=== PATIENT | female | born 1990 | race Caucasian/White ===

== ENCOUNTER 2019-11-20 11:30 | Inpatient (IN) ==
[2019-11-20] MEDS ORDERED: 0.9 % Sodium Chloride 1,000 ML IVC ONE ×2 (12:20→15:09)
[2019-11-20] MEDS ORDERED: Isovue-370 500 ML BOTTLE IVP ONE (12:33)
[2019-11-20 13:02] LABS: Alanine Aminotransferase 139 Units/L (7-52); Albumin 4.5 g/dL (3.5-5.7); Albumin/Globulin Ratio 1.7 (1.1-2.2); Alkaline Phosphatase 79 Units/L (34-104); Amylase 74 Units/L (29-103); Aspartate Amino Transferase 237 Units/L (13-39); BUN/Creatinine Ratio 26 (6-26); Bilirubin,Direct 0.5 mg/dL (0.0-0.2); Bilirubin,Indirect 0.8 mg/dL (0.0-1.0); Bilirubin,Total 1.3 mg/dL (0.3-1.0); Blood Urea Nitrogen 10 mg/dL (6-20); Calcium 9.1 mg/dL (8.6-10.3); Carbon Dioxide 22 mEq/L (23-29); Chloride 99 mEq/L (98-107); Globulin 2.6 g/dL (2.4-3.5); Glucose 96 mg/dL (70-105); Lipase 195 Units/L (11-82); Osmolality,Calculated 287 (280-300); Potassium 3.4 mEq/L (3.5-5.1); Sodium 139 mEq/L (136-145); Total Protein 7.1 g/dL (6.4-8.9); eGFR For African Americans > 60 (> 60); eGFR For Non-African Americans > 60 (> 60)
[2019-11-20 13:24] LABS: Bilirubin,Urine Moderate (Negative); Blood,Urine Negative (Negative); Clarity,Urine Cloudy (Clear); Color,Urine Orange (Yellow); Glucose,Urine (UA) Normal (Normal); Ketones,Urine 80 mg/dL (Negative); Leukocyte Esterase,Urine Small (Negative); Nitrite,Urine Negative (Negative); Protein,Urine 100 mg/dL (Neg-Trace); Specific Gravity,Urine 1.027 (1.010-1.025)
[2019-11-20 13:26] LABS: Bacteria,Urine Moderate per hpf (None-Few); Squamous Epithelial Cell,Urine Many per lpf (None-Few)
[2019-11-20 13:30] LABS: Hyaline Casts,Urine None Seen per lpf (None-Few); RBC,Urine 0-3 per hpf (0-3)
[2019-11-20 14:13] LABS: Basophils # 0.1 K/mcL (0.0-0.2); Basophils % 1.6 %; Eosinophils % 0.6 %; Hematocrit 42.3 % (35.3-44.9); Hemoglobin 14.7 g/dL (11.5-15.4); Immature Granulocytes % 0.3 % (0-4); Lymphocytes % 31.2 %; Mean Corpuscular HGB Conc 34.8 g/dL (31.6-35.5); Mean Corpuscular Hemoglobin 34.4 pg (28.0-33.3); Mean Corpuscular Volume 99.1 fL (83.0-100.0); Mean Platelet Volume 9.6 fL (9.4-12.4); Monocytes # 0.5 K/mcL (0.0-1.3); Monocytes % 14.6 %; Neutrophils # 1.7 K/mcL (1.6-8.9); Platelet Count 134 K/mcL (140-400); Red Blood Count 4.27 M/mcL (3.82-4.97); Red Cell Distribution Width 15.1 % (11.5-14.5); Segmented Neutrophils % 51.7 %; White Blood Count 3.2 K/mcL (4.3-11.1)
[2019-11-20] MEDS ORDERED: Ketorolac 15 MG/ML VIAL IVP ONE (15:09)
[2019-11-20] MEDS ORDERED: Ondansetron 4 MG/2 ML VIAL IVP ONE (15:09)
[2019-11-20] MEDS ORDERED: *HR* Promethazine 25 MG/ML VIAL IVP PRN (16:47)
[2019-11-20] MEDS ORDERED: Ondansetron 4 MG/2 ML VIAL IVP PRN (16:47)
[2019-11-20] MEDS ORDERED: Ibuprofen 400 MG TABLET PO PRN (16:47)
[2019-11-20 17:28] LABS: VBG HCO3 23 mEq/L (21-27); VBG PCO2 34 mmHg (41-51); VBG PH 7.44 pH Units (7.32-7.42); VBG PO2 159 mmHg (25-50)
[2019-11-20 17:54] LABS: Prothrombin Time 11.9 Seconds (9.4-12.1)
[2019-11-20 17:55] LABS: Acetaminophen < 10 mcg/mL (10-20); Ethanol 162 mg/dL (Less than 10); Salicylate < 2.5 mg/dL (15.0-30.0)
[2019-11-20 18:01] LABS: Hepatitis B Surface Antigen Nonreactive (Nonreactive)
[2019-11-20] MEDS: Ringers Solution, Lactated 1,000 ML IVC SCH (18:15)
[2019-11-20] MEDS: Pantoprazole 40 MG VIAL IVP SCH (18:18)
[2019-11-20 18:29] LABS: Hepatitis B Core IgM Nonreactive (Nonreactive)
[2019-11-20 18:30] LABS: Hepatitis C Virus Antibody Nonreactive (Nonreactive)
[2019-11-20 18:31] LABS: Hepatitis A Antibody IgM Nonreactive (Nonreactive)
[2019-11-20 19:29] LABS: Amphetamine Screen,Urine Negative ng/mL (Cutoff=1000); Barbiturate Screen,Urine Negative ng/mL (Cutoff=200); Benzodiazepines Screen,Urine Negative ng/mL (Cutoff=200); Cannabinoid Screen,Urine Negative ng/mL (Cutoff = 50); Cocaine Screen,Urine Negative ng/mL (Cutoff= 300); Opiate Screen,Urine Negative ng/mL (Cutoff=300); Phencyclidine Screen,Urine Negative ng/mL (Cutoff=25)
[2019-11-20] MEDS ORDERED: Ketorolac 15 MG/ML VIAL IVP PRN (19:41)
[2019-11-21] MEDS: Ringers Solution, Lactated 1,000 ML IVC SCH (03:27)
[2019-11-21 05:44] LABS: Immature Granulocytes % 0.5 % (0-4); Red Cell Distribution Width 14.4 % (11.5-14.5)
[2019-11-21 05:46] LABS: Eosinophils # 0.1 K/mcL (0.0-0.6); Eosinophils % 1.5 %; Hematocrit 36.2 % (35.3-44.9); Hemoglobin 12.5 g/dL (11.5-15.4); Immature Platelets 3.7 % (1.1-6.1); Lymphocytes # 1.5 K/mcL (0.6-4.6); Lymphocytes % 36.6 %; Mean Corpuscular HGB Conc 34.5 g/dL (31.6-35.5); Mean Corpuscular Hemoglobin 34.3 pg (28.0-33.3); Mean Corpuscular Volume 99.5 fL (83.0-100.0); Mean Platelet Volume 9.9 fL (9.4-12.4); Monocytes # 0.5 K/mcL (0.0-1.3); Monocytes % 12.9 %; Neutrophils # 1.9 K/mcL (1.6-8.9); Platelet Count 102 K/mcL (140-400); Red Blood Count 3.64 M/mcL (3.82-4.97); Segmented Neutrophils % 47.5 %
[2019-11-21 05:48] LABS: INR 1.1; Prothrombin Time 12.7 Seconds (9.4-12.1)
[2019-11-21 06:05] LABS: Alanine Aminotransferase 95 Units/L (7-52); Albumin/Globulin Ratio 1.8 (1.1-2.2); Alkaline Phosphatase 67 Units/L (34-104); Aspartate Amino Transferase 132 Units/L (13-39); BUN/Creatinine Ratio 18 (6-26); Bilirubin,Direct 0.5 mg/dL (0.0-0.2); Bilirubin,Total 1.5 mg/dL (0.3-1.0); Blood Urea Nitrogen 7 mg/dL (6-20); Calcium 8.6 mg/dL (8.6-10.3); Carbon Dioxide 25 mEq/L (23-29); Chloride 97 mEq/L (98-107); Chol/HDL Ratio 2.1 (0-4.9); Cholesterol 210 mg/dL (< 200); Globulin 2.2 g/dL (2.4-3.5); Glucose 78 mg/dL (70-105); HDL Cholesterol 99 mg/dL (40-59); LDL Cholesterol,Calculated 98 mg/dL (0-99); Lipase 318 Units/L (11-82); Magnesium 1.1 mg/dL (1.6-2.6); Osmolality,Calculated 279 (280-300); Potassium 3.4 mEq/L (3.5-5.1); Sodium 136 mEq/L (136-145); Total Protein 6.2 g/dL (6.4-8.9); Triglycerides 65 mg/dL (< 150); eGFR For African Americans > 60 (> 60); eGFR For Non-African Americans > 60 (> 60)
[2019-11-21] MEDS ORDERED: *HR* LORazepam 2 MG/ML VIAL IVP PRN ×3 (07:57)
[2019-11-21] MEDS ORDERED: 0.9 % Sodium Chloride 1,000 ML IVC ONE (07:59)
[2019-11-21] MEDS: Pantoprazole 40 MG VIAL IVP SCH (10:04)
[2019-11-21] MEDS: 0.9 % Sodium Chloride 1,000 ML IVC SCH ×2 (11:13→19:43)
[2019-11-22] MEDS: 0.9 % Sodium Chloride 1,000 ML IVC SCH ×4 (03:14→20:36)
[2019-11-22] MEDS ORDERED: *HR* LORazepam 2 MG/ML VIAL IVP ONE (03:18)
[2019-11-22 09:10] LABS: INR 1.1
[2019-11-22 09:26] LABS: Alanine Aminotransferase 71 Units/L (7-52); Albumin 3.9 g/dL (3.5-5.7); Albumin/Globulin Ratio 1.6 (1.1-2.2); Alkaline Phosphatase 63 Units/L (34-104); Aspartate Amino Transferase 79 Units/L (13-39); BUN/Creatinine Ratio 18 (6-26); Bilirubin,Direct 0.4 mg/dL (0.0-0.2); Bilirubin,Indirect 0.9 mg/dL (0.0-1.0); Bilirubin,Total 1.3 mg/dL (0.3-1.0); Blood Urea Nitrogen 5 mg/dL (6-20); Calcium 8.5 mg/dL (8.6-10.3); Carbon Dioxide 20 mEq/L (23-29); Chloride 98 mEq/L (98-107); Globulin 2.4 g/dL (2.4-3.5); Glucose 78 mg/dL (70-105); Lipase 291 Units/L (11-82); Magnesium 1.4 mg/dL (1.6-2.6); Osmolality,Calculated 274 (280-300); Potassium 3.7 mEq/L (3.5-5.1); Sodium 134 mEq/L (136-145); Total Protein 6.3 g/dL (6.4-8.9); eGFR For African Americans > 60 (> 60); eGFR For Non-African Americans > 60 (> 60)
[2019-11-22] MEDS: Thiamine (B-1) 100 MG, Folic Acid 1 MG, MVI, adult with vitamin K 10 ML in 0.9 % Sodi... IVPB SCH (10:31)
[2019-11-22] MEDS: Pantoprazole 40 MG VIAL IVP SCH (10:31)
[2019-11-23 01:27] LABS: INR 1.1; Prothrombin Time 12.9 Seconds (9.4-12.1)
[2019-11-23 01:51] LABS: Albumin 3.8 g/dL (3.5-5.7); Albumin/Globulin Ratio 1.6 (1.1-2.2); Bilirubin,Direct 0.4 mg/dL (0.0-0.2); Bilirubin,Indirect 0.8 mg/dL (0.0-1.0); Bilirubin,Total 1.2 mg/dL (0.3-1.0); Globulin 2.4 g/dL (2.4-3.5); Magnesium 1.6 mg/dL (1.6-2.6); Total Protein 6.2 g/dL (6.4-8.9)
[2019-11-23] MEDS: 0.9 % Sodium Chloride 1,000 ML IVC SCH ×4 (07:51→20:28)
[2019-11-23] MEDS: Thiamine (B-1) 100 MG, Folic Acid 1 MG, MVI, adult with vitamin K 10 ML in 0.9 % Sodi... IVPB SCH (07:52)
[2019-11-23] MEDS: Pantoprazole 40 MG VIAL IVP SCH (07:52)
[2019-11-23] MEDS ORDERED: *HR* LORazepam 0.5 MG TABLET PO PRN (10:23)
[2019-11-24] MEDS: 0.9 % Sodium Chloride 1,000 ML IVC SCH ×2 (02:03→08:18)
[2019-11-24 06:18] LABS: INR 1.2; Prothrombin Time 13.4 Seconds (9.4-12.1)
[2019-11-24 06:41] LABS: Albumin 3.6 g/dL (3.5-5.7); Albumin/Globulin Ratio 1.8 (1.1-2.2); Bilirubin,Direct 0.3 mg/dL (0.0-0.2); Bilirubin,Indirect 0.6 mg/dL (0.0-1.0); Bilirubin,Total 0.9 mg/dL (0.3-1.0); Magnesium 1.3 mg/dL (1.6-2.6); Total Protein 5.6 g/dL (6.4-8.9)
[2019-11-24] MEDS: Thiamine (B-1) 100 MG, Folic Acid 1 MG, MVI, adult with vitamin K 10 ML in 0.9 % Sodi... IVPB SCH (09:27)
[2019-11-24 10:33] VITALS: BP 155/117
[2019-11-25 08:32] LABS: ANA IgG by ELISA NONE DETECTED (None Detected)
[2019-11-25 08:52] LABS: Immunoglobulin G Subclass 4 77 mg/dL (1-123)
== END 2019-11-24 13:46 | disposition home or self-care (01) | DRG 438 ==
LOC: EMEROOARM 11:30 → 3ANU 11:30 → SUATTDRO 16:58 → 3ANU 17:57 → SUATTDRO 11-23 13:33
PROVIDERS: ADMIT Internal Medicine; ATTEND Family Medicine

== ENCOUNTER 2020-01-07 09:12 | Inpatient (IN) ==
[2020-01-07] MEDS ORDERED: 0.9 % Sodium Chloride 1,000 ML IVC ONE (09:19)
[2020-01-07] MEDS ORDERED: Thiamine (B-1) 100 MG in 0.9 % Sodium Chloride 50 ML IVPB ONE (09:19)
[2020-01-07] MEDS ORDERED: *HR* LORazepam 2 MG/ML VIAL IVP ONE ×3 (09:28→10:38)
[2020-01-07 09:49] LABS: Basophils # 0.1 K/mcL (0.0-0.2); Basophils % 0.9 %; Eosinophils % 0.2 %; Hemoglobin 13.9 g/dL (11.5-15.4); Immature Granulocytes % 0.4 % (0-4); Lymphocytes # 1.4 K/mcL (0.6-4.6); Lymphocytes % 24.3 %; Mean Corpuscular HGB Conc 33.9 g/dL (31.6-35.5); Mean Corpuscular Hemoglobin 34.3 pg (28.0-33.3); Mean Corpuscular Volume 101.2 fL (83.0-100.0); Mean Platelet Volume 10.1 fL (9.4-12.4); Monocytes # 0.6 K/mcL (0.0-1.3); Neutrophils # 3.7 K/mcL (1.6-8.9); Platelet Count 134 K/mcL (140-400); Red Blood Count 4.05 M/mcL (3.82-4.97); Red Cell Distribution Width 12.2 % (11.5-14.5); Segmented Neutrophils % 64.2 %; White Blood Count 5.7 K/mcL (4.3-11.1)
[2020-01-07 09:59] LABS: Alanine Aminotransferase 44 Units/L (7-52); Albumin 4.7 g/dL (3.5-5.7); Albumin/Globulin Ratio 1.8 (1.1-2.2); Alkaline Phosphatase 63 Units/L (34-104); Aspartate Amino Transferase 54 Units/L (13-39); BUN/Creatinine Ratio 22 (6-26); Bilirubin,Total 1.6 mg/dL (0.3-1.0); Blood Urea Nitrogen 10 mg/dL (6-20); Calcium 9.7 mg/dL (8.6-10.3); Carbon Dioxide 26 mEq/L (23-29); Chloride 100 mEq/L (98-107); Globulin 2.6 g/dL (2.4-3.5); Glucose 113 mg/dL (70-105); Magnesium 1.4 mg/dL (1.6-2.6); Osmolality,Calculated 282 (280-300); Potassium 3.6 mEq/L (3.5-5.1); Sodium 136 mEq/L (136-145); Total Protein 7.3 g/dL (6.4-8.9); eGFR For African Americans > 60 (> 60); eGFR For Non-African Americans > 60 (> 60)
[2020-01-07] MEDS ORDERED: Ondansetron 4 MG/2 ML VIAL IVP PRN (10:49)
[2020-01-07] MEDS ORDERED: Naloxone 0.4 MG/ML INJ IVP PRN (10:49)
[2020-01-07] MEDS ORDERED: Ibuprofen 400 MG TABLET PO PRN (10:49)
[2020-01-07] MEDS ORDERED: Potassium Phosphate 44 MEQ in 0.9 % Sodium Chloride 250 ML IVPB ONE (10:54)
[2020-01-07 11:15] LABS: Lipase 19 Units/L (11-82)
[2020-01-07] MEDS ORDERED: *HR* LORazepam 2 MG/ML VIAL IVP PRN (11:27)
[2020-01-07 11:54] LABS: Folate 13.7 ng/mL (3.0-16.0)
[2020-01-07] MEDS ORDERED: Haloperidol Lactate 5 MG/ML VIAL IVP ONE (12:43)
[2020-01-07] MEDS: *HR* LORazepam 2 MG/ML VIAL IVP PRN (12:51)
[2020-01-07] MEDS: Dexmedetomidine HCl 400 MCG/100 ML MLS IVC SCH ×2 (12:59→21:33)
[2020-01-07 13:08] LABS: Hepatitis B Surface Antigen Nonreactive (Nonreactive)
[2020-01-07 13:37] LABS: Hepatitis C Virus Antibody Nonreactive (Nonreactive)
[2020-01-07 13:39] LABS: Hepatitis A Antibody IgM Nonreactive (Nonreactive)
[2020-01-07] MEDS ORDERED: [UNRECOGNIZED DRUG - OTHER] IVPB ONE (14:01)
[2020-01-07] MEDS ORDERED: MVI IVPB ONE (14:01)
[2020-01-07] MEDS ORDERED: FOLIC ACID IVPB ONE (14:01)
[2020-01-07] MEDS ORDERED: VITAMIN K IVPB ONE (14:01)
[2020-01-07] MEDS ORDERED: THIAMINE IVPB ONE (14:01)
[2020-01-07 14:17] LABS: Bilirubin,Urine Negative (Negative); Blood,Urine Negative (Negative); Clarity,Urine Clear (Clear); Color,Urine Light-Yellow (Yellow); Glucose,Urine (UA) Normal (Normal); Ketones,Urine Negative (Negative); Leukocyte Esterase,Urine Negative (Negative); Nitrite,Urine Negative (Negative); Protein,Urine Negative (Neg-Trace); Specific Gravity,Urine 1.015 (1.010-1.025)
[2020-01-07 14:22] LABS: Acetaminophen < 10 mcg/mL (10-20); Creatine Kinase 137 Units/L (30-223); Salicylate < 2.5 mg/dL (15.0-30.0)
[2020-01-07 14:32] LABS: Amphetamine Screen,Urine Negative ng/mL (Cutoff=1000); Barbiturate Screen,Urine Negative ng/mL (Cutoff=200); Benzodiazepines Screen,Urine Negative ng/mL (Cutoff=200); Cannabinoid Screen,Urine Negative ng/mL (Cutoff = 50); Cocaine Screen,Urine Negative ng/mL (Cutoff= 300); Opiate Screen,Urine Negative ng/mL (Cutoff=300); Phencyclidine Screen,Urine Negative ng/mL (Cutoff=25)
[2020-01-07 14:35] LABS: Thyroid Stimulating Hormone 2.047 mcIU/mL (0.340-5.600)
[2020-01-07] MEDS ORDERED: Dexmedetomidine HCl 400 MCG/100 ML MLS IVC SCH (15:15)
[2020-01-07 16:08] LABS: C-Reactive Protein 12 mg/L (Less than 10)
[2020-01-07 16:52] LABS: INR 1.2; Prothrombin Time 13.4 Seconds (9.4-12.1)
[2020-01-08 02:43] LABS: Basophils # 0.1 K/mcL (0.0-0.2); Eosinophils # 0.1 K/mcL (0.0-0.6); Eosinophils % 1.8 %; Hematocrit 37.6 % (35.3-44.9); Hemoglobin 12.9 g/dL (11.5-15.4); Immature Granulocytes % 0.2 % (0-4); Lymphocytes # 1.8 K/mcL (0.6-4.6); Mean Corpuscular HGB Conc 34.3 g/dL (31.6-35.5); Mean Corpuscular Hemoglobin 35.7 pg (28.0-33.3); Mean Corpuscular Volume 104.2 fL (83.0-100.0); Mean Platelet Volume 11.1 fL (9.4-12.4); Monocytes # 0.3 K/mcL (0.0-1.3); Monocytes % 6.3 %; Neutrophils # 2.8 K/mcL (1.6-8.9); Platelet Count 103 K/mcL (140-400); Red Blood Count 3.61 M/mcL (3.82-4.97); Red Cell Distribution Width 11.9 % (11.5-14.5); Segmented Neutrophils % 55.7 %; White Blood Count 5.1 K/mcL (4.3-11.1)
[2020-01-08 03:01] LABS: BUN/Creatinine Ratio 17 (6-26); Blood Urea Nitrogen 6 mg/dL (6-20); Calcium 9.1 mg/dL (8.6-10.3); Carbon Dioxide 25 mEq/L (23-29); Chloride 108 mEq/L (98-107); Glucose 91 mg/dL (70-105); Magnesium 1.4 mg/dL (1.6-2.6); Osmolality,Calculated 295 (280-300); Potassium 3.8 mEq/L (3.5-5.1); Sodium 144 mEq/L (136-145); eGFR For African Americans > 60 (> 60); eGFR For Non-African Americans > 60 (> 60)
[2020-01-08] MEDS ORDERED: *HR* Enoxaparin 40 MG/0.4 ML SYRINGE SQ SCH (07:00)
[2020-01-08] MEDS: Dexmedetomidine HCl 400 MCG/100 ML MLS IVC SCH ×3 (07:23→22:13)
[2020-01-08] MEDS ORDERED: Thiamine (B-1) 100 MG TABLET PO SCH (09:00)
[2020-01-08] MEDS ORDERED: Vitamin B Complex/Vit C/Vit E 1 EACH TABLET PO SCH (09:00)
[2020-01-08] MEDS ORDERED: Folic Acid 1 MG TABLET PO SCH (09:00)
[2020-01-08] MEDS ORDERED: Thiamine (B-1) 100 MG, Folic Acid 1 MG in 0.9 % Sodium Chloride 50 ML IVPB SCH (16:00)
[2020-01-08] MEDS ORDERED: MVI IVPB ONE (18:00)
[2020-01-08] MEDS ORDERED: [UNRECOGNIZED DRUG - OTHER] IVPB ONE (18:00)
[2020-01-08] MEDS ORDERED: VITAMIN K IVPB ONE (18:00)
[2020-01-08] MEDS ORDERED: FOLIC ACID IVPB ONE (18:00)
[2020-01-08] MEDS ORDERED: THIAMINE IVPB ONE (18:00)
[2020-01-08] MEDS: *HR* LORazepam 2 MG/ML VIAL IVP PRN (20:42)
[2020-01-09 00:54] LABS: Basophils % 1.1 %; Hemoglobin 11.9 g/dL (11.5-15.4)
[2020-01-09 00:56] LABS: Basophils # 0.1 K/mcL (0.0-0.2); Eosinophils # 0.1 K/mcL (0.0-0.6); Eosinophils % 1.3 %; Hematocrit 35.6 % (35.3-44.9); Immature Granulocytes % 0.2 % (0-4); Immature Platelets 7.9 % (1.1-6.1); Lymphocytes % 38.4 %; Mean Corpuscular HGB Conc 33.4 g/dL (31.6-35.5); Mean Corpuscular Hemoglobin 34.6 pg (28.0-33.3); Mean Corpuscular Volume 103.5 fL (83.0-100.0); Mean Platelet Volume 11.1 fL (9.4-12.4); Monocytes # 0.5 K/mcL (0.0-1.3); Monocytes % 8.5 %; Neutrophils # 2.7 K/mcL (1.6-8.9); Red Blood Count 3.44 M/mcL (3.82-4.97); Red Cell Distribution Width 11.9 % (11.5-14.5); Segmented Neutrophils % 50.5 %; White Blood Count 5.3 K/mcL (4.3-11.1)
[2020-01-09 00:59] LABS: Platelet Count 97 K/mcL (140-400)
[2020-01-09 01:11] LABS: BUN/Creatinine Ratio 28 (6-26); Blood Urea Nitrogen 11 mg/dL (6-20); Calcium 8.7 mg/dL (8.6-10.3); Carbon Dioxide 27 mEq/L (23-29); Chloride 104 mEq/L (98-107); Glucose 94 mg/dL (70-105); Magnesium 1.8 mg/dL (1.6-2.6); Osmolality,Calculated 285 (280-300); Phosphorous 4.5 mg/dL (2.7-4.5); Potassium 3.4 mEq/L (3.5-5.1); Sodium 138 mEq/L (136-145); eGFR For African Americans > 60 (> 60); eGFR For Non-African Americans > 60 (> 60)
[2020-01-09] MEDS: *HR* LORazepam 2 MG/ML VIAL IVP PRN ×2 (03:48→20:29)
[2020-01-09] MEDS: Potassium Chloride Elixir 20 MEQ/15 ML UDC PO SCH ×3 (04:23→20:17)
[2020-01-09] MEDS: Thiamine (B-1) 100 MG TABLET PO SCH (11:42)
[2020-01-09] MEDS: Multivit/Ca/Min/Fe/FA 1 TAB TABLET PO SCH (11:42)
[2020-01-09] MEDS: Folic Acid 1 MG TABLET PO SCH (11:42)
[2020-01-09] MEDS ORDERED: Melatonin 3 MG TABLET PO ONE (22:55)
[2020-01-10 01:07] LABS: Basophils % 0.7 %; Eosinophils # 0.1 K/mcL (0.0-0.6); Eosinophils % 0.9 %; Hematocrit 36.8 % (35.3-44.9); Hemoglobin 12.6 g/dL (11.5-15.4); Immature Granulocytes % 0.4 % (0-4); Lymphocytes # 1.5 K/mcL (0.6-4.6); Lymphocytes % 27.2 %; Mean Corpuscular HGB Conc 34.2 g/dL (31.6-35.5); Mean Corpuscular Hemoglobin 35.7 pg (28.0-33.3); Mean Corpuscular Volume 104.2 fL (83.0-100.0); Mean Platelet Volume 10.3 fL (9.4-12.4); Monocytes # 0.6 K/mcL (0.0-1.3); Monocytes % 9.9 %; Neutrophils # 3.4 K/mcL (1.6-8.9); Platelet Count 123 K/mcL (140-400); Red Blood Count 3.53 M/mcL (3.82-4.97); Red Cell Distribution Width 12.1 % (11.5-14.5); Segmented Neutrophils % 60.9 %; White Blood Count 5.6 K/mcL (4.3-11.1)
[2020-01-10 01:22] LABS: BUN/Creatinine Ratio 19 (6-26); Blood Urea Nitrogen 10 mg/dL (6-20); Carbon Dioxide 25 mEq/L (23-29); Chloride 104 mEq/L (98-107); Glucose 123 mg/dL (70-105); Magnesium 1.8 mg/dL (1.6-2.6); Osmolality,Calculated 280 (280-300); Phosphorous 3.7 mg/dL (2.7-4.5); Potassium 4.2 mEq/L (3.5-5.1); Sodium 135 mEq/L (136-145); eGFR For African Americans > 60 (> 60); eGFR For Non-African Americans > 60 (> 60)
[2020-01-10 06:49] VITALS: BP 142/94
[2020-01-10] MEDS: Thiamine (B-1) 100 MG TABLET PO SCH (08:18)
[2020-01-10] MEDS: *HR* LORazepam 2 MG/ML VIAL IVP PRN (08:19)
[2020-01-10] MEDS: Folic Acid 1 MG TABLET PO SCH (08:19)
[2020-01-10] MEDS: Multivit/Ca/Min/Fe/FA 1 TAB TABLET PO SCH (08:19)
[2020-01-10] MEDS: Potassium Chloride Elixir 20 MEQ/15 ML UDC PO SCH (08:19)
== END 2020-01-10 10:19 | disposition home or self-care (01) | DRG 896 ==
LOC: 2NNU 09:12 → EMEROOARM 09:12 → 2NNU 12:21 → SUATTDRO 01-08 10:00 → 3ANU 01-09 10:16
PROVIDERS: ADMIT Pharmacist; ATTEND Family Medicine

== ENCOUNTER 2020-02-24 19:08 | Observation (INO) ==
[2020-02-24] MEDS ORDERED: 0.9 % Sodium Chloride 1,000 ML IV ONE ×2 (19:28→23:38)
[2020-02-24 20:21] LABS: Basophils # 0.1 K/mcL (0.0-0.2); Basophils % 0.6 %; Eosinophils % 0.1 %; Hematocrit 48.8 % (35.3-44.9); Immature Granulocytes % 0.2 % (0-4); Lymphocytes # 3.1 K/mcL (0.6-4.6); Lymphocytes % 35.6 %; Mean Corpuscular HGB Conc 32.8 g/dL (31.6-35.5); Mean Corpuscular Hemoglobin 32.9 pg (28.0-33.3); Mean Corpuscular Volume 100.2 fL (83.0-100.0); Monocytes # 0.5 K/mcL (0.0-1.3); Monocytes % 5.4 %; Platelet Count 326 K/mcL (140-400); Red Blood Count 4.87 M/mcL (3.82-4.97); Red Cell Distribution Width 11.7 % (11.5-14.5); Segmented Neutrophils % 58.1 %; White Blood Count 8.7 K/mcL (4.3-11.1)
[2020-02-24] MEDS ORDERED: Haloperidol Lactate 5 MG/ML VIAL IVP ONE (20:24)
[2020-02-24 20:52] LABS: Bacteria,Urine Few per hpf (None-Few); Bilirubin,Urine Negative (Negative); Blood,Urine Negative (Negative); Clarity,Urine Clear (Clear); Color,Urine Light-Yellow (Yellow); Glucose,Urine (UA) Normal (Normal); Ketones,Urine >150 mg/dL (Negative); Leukocyte Esterase,Urine Negative (Negative); Nitrite,Urine Negative (Negative); PH,Urine 5.5 pH Units (5.0-8.0); Protein,Urine 30 mg/dL (Neg-Trace); RBC,Urine 0-3 per hpf (0-3); Specific Gravity,Urine 1.026 (1.010-1.025); Squamous Epithelial Cell,Urine Moderate per hpf (None-Few); Urobilinogen,Urine Normal (Normal); WBC,Urine 0-3 per hpf (0-3)
[2020-02-24] MEDS ORDERED: *HR* LORazepam 2 MG/ML VIAL IVP ONE (21:44)
[2020-02-24 21:51] LABS: Acetaminophen < 10 mcg/mL (10-20); BUN/Creatinine Ratio 24 (6-26); Blood Urea Nitrogen 11 mg/dL (6-20); Calcium 9.2 mg/dL (8.6-10.3); Carbon Dioxide 12 mEq/L (23-29); Chloride 102 mEq/L (98-107); Ethanol 156 mg/dL (Less than 10); Glucose 44 mg/dL (70-105); Osmolality,Calculated 282 (280-300); Potassium 5.3 mEq/L (3.5-5.1); Salicylate < 2.5 mg/dL (15.0-30.0); Sodium 138 mEq/L (136-145); eGFR For African Americans > 60 (> 60); eGFR For Non-African Americans > 60 (> 60)
[2020-02-24 21:52] LABS: Amphetamine Screen,Urine Negative ng/mL (Cutoff=1000); Barbiturate Screen,Urine Negative ng/mL (Cutoff=200); Benzodiazepines Screen,Urine Negative ng/mL (Cutoff=200); Cannabinoid Screen,Urine Negative ng/mL (Cutoff = 50); Cocaine Screen,Urine Negative ng/mL (Cutoff= 300); Opiate Screen,Urine Negative ng/mL (Cutoff=300); Phencyclidine Screen,Urine Negative ng/mL (Cutoff=25)
[2020-02-24 22:01] LABS: Troponin I < 0.03 ng/mL (< 0.04)
[2020-02-24] MEDS ORDERED: Isovue-370 500 ML BOTTLE IVP ONE (22:16)
[2020-02-25] MEDS ORDERED: Naloxone 0.4 MG/ML INJ IVP PRN (01:04)
[2020-02-25] MEDS ORDERED: *HR* LORazepam 2 MG/ML VIAL IVP PRN ×3 (01:06)
[2020-02-25] MEDS ORDERED: Thiamine (B-1) 100 MG, Folic Acid 1 MG, MVI, adult with vitamin K 10 ML in 0.9 % Sodi... IVPB SCH (01:45)
[2020-02-25] MEDS ORDERED: Melatonin 3 MG TABLET PO PRN (04:17)
[2020-02-25 06:12] LABS: Hematocrit 36.4 % (35.3-44.9); Hemoglobin 12.3 g/dL (11.5-15.4); Mean Corpuscular HGB Conc 33.8 g/dL (31.6-35.5); Mean Corpuscular Volume 97.6 fL (83.0-100.0); Platelet Count 260 K/mcL (140-400); Red Blood Count 3.73 M/mcL (3.82-4.97); Red Cell Distribution Width 11.5 % (11.5-14.5); White Blood Count 8.8 K/mcL (4.3-11.1)
[2020-02-25 06:31] LABS: Alanine Aminotransferase 14 Units/L (7-52); Albumin 3.9 g/dL (3.5-5.7); Albumin/Globulin Ratio 1.7 (1.1-2.2); Alkaline Phosphatase 44 Units/L (34-104); Aspartate Amino Transferase 20 Units/L (13-39); BUN/Creatinine Ratio 15 (6-26); Bilirubin,Total 0.7 mg/dL (0.3-1.0); Blood Urea Nitrogen 6 mg/dL (6-20); Calcium 8.5 mg/dL (8.6-10.3); Carbon Dioxide 17 mEq/L (23-29); Chloride 104 mEq/L (98-107); Globulin 2.3 g/dL (2.4-3.5); Glucose 62 mg/dL (70-105); Osmolality,Calculated 278 (280-300); Potassium 4.3 mEq/L (3.5-5.1); Sodium 136 mEq/L (136-145); Total Protein 6.2 g/dL (6.4-8.9); eGFR For African Americans > 60 (> 60); eGFR For Non-African Americans > 60 (> 60)
[2020-02-25 07:53] VITALS: BP 123/79
== END 2020-02-25 11:02 | disposition home or self-care (01) ==
LOC: EMEROOARM 19:08 → 3BNU 19:08
PROVIDERS: ADMIT Internal Medicine; ATTEND Internal Medicine

== ENCOUNTER 2021-07-27 23:03 | Observation (INO) ==
[2021-07-27] MEDS ORDERED: Ondansetron 4 MG/2 ML VIAL IVP ONE (23:21)
[2021-07-27] MEDS ORDERED: 0.9 % Sodium Chloride 1,000 ML IVC ONE (23:21)
[2021-07-28] LABS: Estimated Average Glucose 103 mg/dl; Hemoglobin A1C 5.2 %
[2021-07-28 00:01] LABS: Acetaminophen 71 mcg/mL (10-20); BUN/Creatinine Ratio 20 (6-26); Blood Urea Nitrogen 12 mg/dL (6-20); Carbon Dioxide 20 mEq/L (23-29); Chloride 99 mEq/L (98-107); Chol/HDL Ratio 3.5 (0-4.9); Cholesterol 182 mg/dL (< 200); Ethanol 278 mg/dL (Less than 10); Glucose 64 mg/dL (70-105); HDL Cholesterol 52 mg/dL (40-59); LDL Cholesterol,Calculated 71 mg/dL (< 100); Osmolality,Calculated 290 (280-300); Potassium 3.7 mEq/L (3.5-5.1); Salicylate < 2.5 mg/dL (15.0-30.0); Sodium 141 mEq/L (136-145); Triglycerides 297 mg/dL (< 150); eGFR For African Americans > 60 (> 60); eGFR For Non-African Americans > 60 (> 60)
[2021-07-28 00:13] LABS: Basophils # 0.1 K/mcL (0.0-0.2); Basophils % 1.2 %; Eosinophils % 0.1 %; Hemoglobin 14.6 g/dL (11.5-15.4); Immature Granulocytes % 0.5 % (0-4); Lymphocytes # 2.5 K/mcL (0.6-4.6); Lymphocytes % 34.7 %; Mean Corpuscular HGB Conc 33.2 g/dL (31.6-35.5); Mean Corpuscular Hemoglobin 31.1 pg (28.0-33.3); Mean Corpuscular Volume 93.6 fL (83.0-100.0); Mean Platelet Volume 8.8 fL (9.4-12.4); Monocytes # 0.3 K/mcL (0.0-1.3); Monocytes % 3.4 %; Neutrophils # 4.4 K/mcL (1.6-8.9); Platelet Count 363 K/mcL (140-400); Red Cell Distribution Width 13.3 % (11.5-14.5); Segmented Neutrophils % 60.1 %; White Blood Count 7.3 K/mcL (4.3-11.1)
[2021-07-28] MEDS ORDERED: D5 IVC ONE ×3 (01:00→06:00)
[2021-07-28] MEDS ORDERED: WATER IVC ONE ×3 (01:00→06:00)
[2021-07-28] MEDS ORDERED: ACETYLCYSTEINE IVC ONE ×3 (01:00→06:00)
[2021-07-28] MEDS ORDERED: Ondansetron 4 MG/2 ML VIAL IVP PRN (01:20)
[2021-07-28] MEDS ORDERED: Naloxone 0.4 MG/ML INJ IVP PRN (01:20)
[2021-07-28] MEDS ORDERED: Melatonin 3 MG TABLET PO PRN (01:20)
[2021-07-28] MEDS ORDERED: MOM Conc 10 ML UD.LIQ PO PRN (01:20)
[2021-07-28 01:30] LABS: Bilirubin,Urine Negative (Negative); Blood,Urine Moderate (Negative); Clarity,Urine Clear (Clear); Color,Urine Light-Yellow (Yellow); Glucose,Urine (UA) Normal (Normal); Ketones,Urine >150 mg/dL (Negative); Leukocyte Esterase,Urine Negative (Negative); Mucus,Urine Few per lpf (None-Few); Nitrite,Urine Negative (Negative); PH,Urine 5.5 pH Units (5.0-8.0); Protein,Urine 50 mg/dL (Neg-Trace); RBC,Urine 0-3 per hpf (0-3); Specific Gravity,Urine > 1.030 (1.010-1.025); Squamous Epithelial Cell,Urine Few per hpf (None-Few); Urobilinogen,Urine Normal (Normal); WBC,Urine 0-3 per hpf (0-3)
[2021-07-28 01:37] LABS: Amphetamine Screen,Urine Negative ng/mL (Cutoff=1000); Barbiturate Screen,Urine Negative ng/mL (Cutoff=200); Benzodiazepines Screen,Urine Negative ng/mL (Cutoff=200); Cannabinoid Screen,Urine Negative ng/mL (Cutoff = 50); Cocaine Screen,Urine Negative ng/mL (Cutoff= 300); Opiate Screen,Urine Negative ng/mL (Cutoff=300); Phencyclidine Screen,Urine Negative ng/mL (Cutoff=25)
[2021-07-28 01:58] LABS: Albumin 4.4 g/dL (3.5-5.7); Albumin/Globulin Ratio 1.6 (1.1-2.2); Bilirubin,Direct 0.1 mg/dL (0.0-0.2); Bilirubin,Indirect 0.3 mg/dL (0.0-1.0); Bilirubin,Total 0.4 mg/dL (0.3-1.0); Globulin 2.7 g/dL (2.4-3.5); Total Protein 7.1 g/dL (6.4-8.9)
[2021-07-28 02:19] LABS: Influenza A PCR Negative (Negative); Influenza B PCR Negative (Negative); Resp. Syncytial Virus PCR Negative (Negative)
[2021-07-28 02:20] LABS: SARS-CoV-2 by PCR (In House) Negative (Negative)
[2021-07-28] MEDS ORDERED: *HR* LORazepam 2 MG/ML VIAL IVP PRN ×3 (03:28)
[2021-07-28] MEDS ORDERED: *HR* Promethazine 25 MG/ML VIAL IM ONE (03:51)
[2021-07-28 04:31] LABS: Basophils # 0.1 K/mcL (0.0-0.2); Basophils % 0.6 %; Eosinophils % 0.1 %; Hematocrit 37.4 % (35.3-44.9); Immature Granulocytes % 0.3 % (0-4); Lymphocytes # 3.2 K/mcL (0.6-4.6); Lymphocytes % 33.5 %; Mean Corpuscular HGB Conc 34.2 g/dL (31.6-35.5); Mean Corpuscular Hemoglobin 31.4 pg (28.0-33.3); Mean Corpuscular Volume 91.7 fL (83.0-100.0); Mean Platelet Volume 8.9 fL (9.4-12.4); Monocytes # 0.7 K/mcL (0.0-1.3); Monocytes % 7.1 %; Neutrophils # 5.6 K/mcL (1.6-8.9); Platelet Count 297 K/mcL (140-400); Red Blood Count 4.08 M/mcL (3.82-4.97); Red Cell Distribution Width 13.4 % (11.5-14.5); Segmented Neutrophils % 58.4 %; White Blood Count 9.6 K/mcL (4.3-11.1)
[2021-07-28 04:32] LABS: Hemoglobin 12.8 g/dL (11.5-15.4)
[2021-07-28 04:54] LABS: Alanine Aminotransferase 32 Units/L (7-52); Albumin 4.1 g/dL (3.5-5.7); Albumin/Globulin Ratio 1.7 (1.1-2.2); Alkaline Phosphatase 43 Units/L (34-104); Aspartate Amino Transferase 36 Units/L (13-39); BUN/Creatinine Ratio 24 (6-26); Bilirubin,Total 0.4 mg/dL (0.3-1.0); Blood Urea Nitrogen 10 mg/dL (6-20); Calcium 7.8 mg/dL (8.6-10.3); Carbon Dioxide 17 mEq/L (23-29); Chloride 106 mEq/L (98-107); Globulin 2.4 g/dL (2.4-3.5); Glucose 115 mg/dL (70-105); Osmolality,Calculated 286 (280-300); Potassium 3.8 mEq/L (3.5-5.1); Sodium 138 mEq/L (136-145); Total Protein 6.5 g/dL (6.4-8.9); eGFR For African Americans > 60 (> 60); eGFR For Non-African Americans > 60 (> 60)
[2021-07-28] MEDS: 0.9 % Sodium Chloride 1,000 ML IVC SCH ×2 (05:57→17:47)
[2021-07-28 10:13] LABS: VBG Ionized Calcium 1.03 mmol/L (1.15-1.35)
[2021-07-28] MEDS: Vitamin B Complex/Vit C/Vit E 1 EACH TABLET PO SCH (10:18)
[2021-07-28] MEDS: Folic Acid 1 MG TABLET PO SCH (10:19)
[2021-07-28] MEDS: hydrOXYzine pamoate 25 MG CAPSULE PO PRN ×2 (11:37→17:47)
[2021-07-28] MEDS ORDERED: *HR* LORazepam 2 MG/ML VIAL IVP ONE (20:42)
[2021-07-28 21:51] LABS: Acetaminophen < 10 mcg/mL (10-20); Alanine Aminotransferase 32 Units/L (7-52); Albumin 3.5 g/dL (3.5-5.7); Albumin/Globulin Ratio 1.8 (1.1-2.2); Alkaline Phosphatase 45 Units/L (34-104); Aspartate Amino Transferase 42 Units/L (13-39); Bilirubin,Direct 0.3 mg/dL (0.0-0.2); Bilirubin,Indirect 1.1 mg/dL (0.0-1.0); Bilirubin,Total 1.4 mg/dL (0.3-1.0); Globulin 1.9 g/dL (2.4-3.5); Total Protein 5.4 g/dL (6.4-8.9)
[2021-07-29 01:29] LABS: Acetaminophen < 10 mcg/mL (10-20); Alanine Aminotransferase 33 Units/L (7-52); Albumin 3.3 g/dL (3.5-5.7); Albumin/Globulin Ratio 1.7 (1.1-2.2); Alkaline Phosphatase 38 Units/L (34-104); Aspartate Amino Transferase 41 Units/L (13-39); Bilirubin,Direct 0.2 mg/dL (0.0-0.2); Bilirubin,Indirect 1.1 mg/dL (0.0-1.0); Bilirubin,Total 1.3 mg/dL (0.3-1.0); Globulin 1.9 g/dL (2.4-3.5); Total Protein 5.2 g/dL (6.4-8.9)
[2021-07-29 07:09] VITALS: BP 104/65; PULSE 72; TEMP 98.1; O2SAT 97
[2021-07-29] MEDS: Vitamin B Complex/Vit C/Vit E 1 EACH TABLET PO SCH (08:19)
[2021-07-29] MEDS: Folic Acid 1 MG TABLET PO SCH (08:19)
[2021-07-29] MEDS: hydrOXYzine pamoate 25 MG CAPSULE PO PRN (08:20)
[2021-07-29 09:11] LABS: Albumin 3.5 g/dL (3.5-5.7); Albumin/Globulin Ratio 1.8 (1.1-2.2); Bilirubin,Direct 0.3 mg/dL (0.0-0.2); Bilirubin,Indirect 1.4 mg/dL (0.0-1.0); Bilirubin,Total 1.7 mg/dL (0.3-1.0); Total Protein 5.5 g/dL (6.4-8.9)
[2021-07-29 12:55] LABS: Albumin 3.5 g/dL (3.5-5.7); Albumin/Globulin Ratio 1.8 (1.1-2.2); Bilirubin,Direct 0.2 mg/dL (0.0-0.2); Bilirubin,Indirect 1.1 mg/dL (0.0-1.0); Bilirubin,Total 1.3 mg/dL (0.3-1.0); Total Protein 5.5 g/dL (6.4-8.9)
== END 2021-07-29 15:06 | disposition home or self-care (01) ==
LOC: 2NNU 23:03 → EMEROOARM 23:03 → SUATTDRO 07-28 01:12 → 2NNU 07-28 03:10 → 3BNU 07-28 12:46
PROVIDERS: ADMIT Internal Medicine; ATTEND Internal Medicine

== ENCOUNTER 2021-07-29 14:50 | Inpatient (IN) ==
[2021-07-29] MEDS ORDERED: MOM Conc 10 ML UD.LIQ PO PRN (14:57)
[2021-07-29] MEDS ORDERED: Haloperidol Lactate 5 MG/ML VIAL IM PRN (14:57)
[2021-07-29] MEDS ORDERED: hydrOXYzine pamoate 25 MG CAPSULE PO PRN (14:57)
[2021-07-29] MEDS ORDERED: *HR* LORazepam 2 MG/ML VIAL IM PRN (14:57)
[2021-07-29] MEDS ORDERED: haloperidoL 5 MG TABLET PO PRN (14:57)
[2021-07-29] MEDS ORDERED: Mag Hydrox/Al Hydrox/Simeth 30 ML UDC PO PRN (14:57)
[2021-07-29] MEDS ORDERED: *HR* LORazepam 1 MG TABLET PO PRN (14:57)
[2021-07-29] MEDS: hydrOXYzine pamoate 25 MG CAPSULE PO PRN ×2 (17:56→23:17)
[2021-07-29] MEDS: Ibuprofen 400 MG TABLET PO PRN (20:55)
[2021-07-29] MEDS: traZODone 50 MG TABLET PO PRN (20:55)
[2021-07-30] MEDS: Vitamin B Complex/Vit C/Vit E 1 EACH TABLET PO SCH (09:17)
[2021-07-30] MEDS: Folic Acid 1 MG TABLET PO SCH (09:17)
[2021-07-30] MEDS: Ibuprofen 400 MG TABLET PO PRN (22:01)
[2021-07-30] MEDS: traZODone 50 MG TABLET PO PRN ×2 (22:01→23:24)
[2021-07-30] MEDS: hydrOXYzine pamoate 25 MG CAPSULE PO PRN (22:01)
[2021-07-31] MEDS: Folic Acid 1 MG TABLET PO SCH (08:58)
[2021-07-31] MEDS: Vitamin B Complex/Vit C/Vit E 1 EACH TABLET PO SCH (08:58)
[2021-07-31 09:44] VITALS: BP 120/81; PULSE 73; TEMP 99.2; O2SAT 96
[2021-07-31] MEDS ORDERED: FLU Vac QV 21-22 (6Month+)/PF 0.5 ML SYRINGE IM ONE (11:14)
== END 2021-07-31 13:45 | disposition home or self-care (01) | DRG 885 ==
LOC: 1ANU 14:50
PROVIDERS: ADMIT Psychiatry & Neurology Psychiatry; ATTEND Psychiatry & Neurology Psychiatry